=== PATIENT | male | born 1990 | race Caucasian/White ===

== ENCOUNTER 2019-05-21 18:14 | Emergency (ER) | payer OTHER ==
[~2019-05-21] VITALS: Ht 177.8 cm; Wt 113.4 kg
[2019-05-21] MEDS ORDERED: VENTOLIN HFA18 GM INH (19:29)
== END 2019-05-21 21:49 | disposition home or self-care (01) ==
LOC: ED 18:14
DX: S16.1XXA Strain of muscle, fascia and tendon at neck level, initial encounter (principal); S29.012A Strain of muscle and tendon of back wall of thorax, initial encounter; V49.9XXA Car occupant (driver) (passenger) injured in unspecified traffic accident, initial encounter
CPT/HCPCS: 72040; 72070; 99283; A9270

== ENCOUNTER 2019-07-17 18:08 | Emergency (ER) | payer BC ==
[~2019-07-17] VITALS: Ht 177.8 cm; Wt 108.9 kg
[~2019-07-17 18:08] MED LIST: VENTOLIN HFA18 GM INH
[2019-07-17] MEDS ORDERED: PREDNISONE20 MG PO (19:34)
== END 2019-07-17 20:09 | disposition home or self-care (01) ==
LOC: ED 18:08
DX: J98.8 Other specified respiratory disorders (principal); B97.89 Other viral agents as the cause of diseases classified elsewhere; J45.909 Unspecified asthma, uncomplicated; Z87.891 Personal history of nicotine dependence; Z79.51 Long term (current) use of inhaled steroids
CPT/HCPCS: 99283; J7512